=== PATIENT | male | born 1990 | race Two or more races ===

== ENCOUNTER 2019-06-29 18:10 | Emergency (ER) | payer SELFPAY ==
[~2019-06-29] VITALS: Ht 177.8 cm; Wt 78.0 kg
[2019-06-29 18:17] VITALS: BP 150/90
== END 2019-06-30 00:24 | disposition left against medical advice (07) ==
LOC: ER 18:54
DX: Z53.21 Procedure and treatment not carried out due to patient leaving prior to being seen by health care provider (principal)